=== PATIENT | male | born 1990 ===

== ENCOUNTER 2020-03-13 02:08 | Emergency (ER) | payer SELFPAY ==
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
[2020-03-13 02:54] LABS: ANION GAP 12.9 mEq/L (7-13); CHLORIDE,CL 108 mmol/L (98-107); SODIUM,NA 147 mmol/L (136-145)
== END 2020-03-13 02:49 | disposition left against medical advice (07) ==
LOC: DL.ED 02:08
DX: F10.10 Alcohol abuse, uncomplicated (principal); Y90.8 Blood alcohol level of 240 mg/100 ml or more; Z77.22 Contact with and (suspected) exposure to environmental tobacco smoke (acute) (chronic); Z79.899 Other long term (current) drug therapy
CPT/HCPCS: 36415; 80053; 80307; 85007; 85027; 99282; 99284